=== PATIENT | female | born 1980 | race African-American/Black ===

== ENCOUNTER 2025-03-30 20:57 | Emergency (ER) | payer MEDICARE, SELFPAY ==
--- NOTE | ~2025-03-30 | CT_ITS ---
EXAM: CT abdomen pelvis wo con - 03/30/2025 22:46 CDT History: 45 years old Female with urinary sx, flank pain TECHNIQUE: Multidetector CT of the abdomen and pelvis without contrast. Coronal and sagittal reformats were also provided for review. Automatic exposure control was used for this study. COMPARISON: None Available. FINDINGS: Evaluation of bowel, vasculature, solid and hollow viscera is limited in the absence of oral and IV contrast. VISUALIZED CHEST: Visualized lungs are clear. ABDOMEN and PELVIS: LIVER: Within normal limits. GALLBLADDER: No calcified gallstones. BILE DUCTS: No dilatation. SPLEEN: Within normal limits. PANCREAS: Within normal limits. ADRENAL GLANDS: Within normal limits. KIDNEYS and URETERS: No hydronephrosis or hydroureter. No nephroureterolithiasis. URINARY BLADDER: Within normal limits. STOMACH and BOWEL: No abnormal bowel wall thickening. No obstruction. REPRODUCTIVE ORGANS: Within normal limits. MESENTERY/PERITONEAL CAVITY: No free fluid or pneumoperitoneum. LYMPH NODES: No abdominal or pelvic lymphadenopathy. ABDOMINAL WALL: Within normal limits. VASCULATURE: Within normal limits. MUSCULOSKELETAL: Within normal limits. IMPRESSION: 1. No evidence of acute pathology in the abdomen and pelvis. Reviewed, dictated and finalized at location N.
--- OUTSIDE RECORDS SUMMARY | 2025-03-30 21:00 | XMS_ITS | Clinical Summary ---
Author Organization [facility] on Address [address] [place] [address] Phone Care Team Providers Care Film Or Videotape Editor Name Role Phone Unavailable Primary Care Provider Unavailabl e Allergies Active Allergy Reactions Criticality Noted Date Comments Azithromycin Rash Low 07/02/2016 Meperidine Shortness of Breath/Wheezing,Rash High 07/02/2016 Propoxyphene N-Acetaminophen Rash Low 016 Sulfa (Sulfonamide Antibiotics) Rash Low 07/02/2016 Tramadol Diarrhea,Rash Low 07/02/2016 Medications CROMOLYN SODIUM (NASALCROM BOTH NOSTRIL) Administer in each nostril. Active BENZONATATE (TESSALON ORAL) Take by mouth. Active LORATADINE ORAL Take by mouth. Active QUEtiapine (SEROquel) 25 mg tablet TK 1 T PO HS 3 6 Active albuterol HFA 90 mcg inhalerIndication s:Asthmatic bronchitis, mild intermittent, uncomplicated Take 2 Puffs by inhalation every 6 hours as needed for Shortness of Breath or Wheezing. 6.7 Gram 6 Active fluticasone (FLONASE) 50 mcg/spray [place], SuspensionIndicat ions:Asthmatic bronchitis, mild intermittent, uncomplicated Administer 2 Sprays in each nostril daily. 16 Gram 6 Active Active Problems No known active problems Family History Medical History Relation Name Comments Hypertension Father Diabetes Mother Hypertension Mother Relation Name Status Comments Father Alive Mother Alive Social History Tobacco Use Types Packs/Day Years Used Date Smoking Tobacco: Never Alcohol Use Standard Drinks/Week Comments No 0 (1 standard drink = 0.6 oz pur e alcohol) Comments No Sex and Gender Information Value Date Recorded Sex Assigned at Not on file Legal Sex Female 5:02 PM CAREER TECHNICAL EDUCATION TEACHER Gender Identity Not on file Sexual Orientation Not on file Last Filed Vital Signs Vital Sign Reading Time Taken Comments Blood Pressure 116/87 07/02/2016 5:22 PM CAREER TECHNICAL EDUCATION TEACHER Pulse 80 07/02/2016 5:22 PM CAREER TECHNICAL EDUCATION TEACHER Temperature 36.9 C (98.4 F) 07/02/2016 5:22 PM CAREER TECHNICAL EDUCATION TEACHER Respiratory Rate 18 07/02/2016 5:22 PM CAREER TECHNICAL EDUCATION TEACHER Oxygen Saturation 100% 07/02/2016 5:22 PM CAREER TECHNICAL EDUCATION TEACHER Inhaled Oxygen Concentration - - Weight 72.1 kg (159 lb) 07/02/2016 5:22 PM CAREER TECHNICAL EDUCATION TEACHER Height 172.7 cm (5' 8) 07/02/2016 5:22 PM CAREER TECHNICAL EDUCATION TEACHER Body Mass Index 24.18 07/02/2016 5:22 PM CAREER TECHNICAL EDUCATION TEACHER Plan of Treatment Health Maintenance Due Date Last Done Comments DTAP/TDAP/TD VACCINES (1 - Tdap) 2001 HEPATITIS B VACCINES (1 of 3 - 19+ 3-dose series) 02/2001 HPV/Cotest (21-29) 2003 HPV VACCINES (1 - 3-dose SCDM series) 2009 CERVICAL CANCER SCREENING 01/03/2012 HPV/Cotest (30-65) 01/03/2012 PAP SMEAR 01/03/2012 BREAST CANCER SCREENING 2022 INFLUENZA VACCINE (#1) 2025 Insurance MEDICARE PART A HOSPITAL ONLY MEDICAID [place] MEDICARE PART A AND B
--- OUTSIDE RECORDS SUMMARY | 2025-03-30 21:00 | XMS_ITS | Clinical Summary ---
Author Organization [facility] Address [address] [facility] [place] [address] Care Team Providers Care Reweaver Name Role Phone Ron Champion MD Primary Care Provider [phone] Allergies Active Allergy Reactions Criticality Noted Date Comments Azithromycin Rash Medium 07/02/2016 Hydrocodone Rash Medium 12/20/2015 Hydromorphone Rash Medium 12/20/2015 Meperidine Itching,Rash,Shortne ss of breath High 12/20/2015 Oxycodone-Acetaminophen Rash Medium 12/20/2015 Penicillins Itching,Stomach upset Low 12/20/2015 Propoxyphene N-Acetaminophen Rash Medium 016 Sulfa (Sulfonamide Antibiotics) Tramadol Medications cetirizine (ZyrTEC) 10 mg tablet take 1 tablet by oral route every day 0 0 08/28/2015 Active naproxen (NAPROSYN,ALEVE ) 500 mg tablet take 1 tablet by oral route 2 times every day with food 0 0 08/28/2015 Active cyclobenzaprine (FLEXERIL) 10 mg tablet Take 1 tablet (10 mg total) by mouth every 8 (eight) hours as needed for muscle spasms 20 tablet 01/29/2024 Active magnesium gluconate 200 mg tabletIndicatio ns:hypomagnesem ia 1 tablet (200 mg total) Active multivitamin tabletIndicatio ns:Vitamin Deficiency Prevention Take 1 tablet by mouth Active turmeric root extract 500 mg capsule Take by mouth Active QUEtiapine (SEROquel) 25 mg tabletIndicatio ns:Bipolar affective disorder, currently depressed, mild (HCC) Take 1 tablet (25 mg total) by mouth nightly 05/13/2024 Active simvastatin (ZOCOR) 20 mg tablet Take 1 tablet (20 mg total) by mouth nightly 90 tablet 3 05/19/2024 05/19/20 25 Active albuterol HFA (ProAir HFA) 90 mcg/actuation inhaler Inhale 2 puffs every 4 (four) hours as needed for wheezing 1 each 11 07/29/2024 Active Active Problems Problem Noted Date Diagnosed Date Encounter to establish care 05/13/2024 Assessment & Plan (05/13/2024 3:39 PM CDT): In regard to health maintenance, Mammogram- ordered Influenza vaccine- declined Eat a healthy diet: focus on lean meats and proteins, more fruits, vegetables and whole grains and low in sugars and fats. Limit red meat and avoid processed meat. Maintain a healthy weight; avoid being overweight. Aim for a normal body mass index (BMI) of 18.5-24.9. Help learning to eat healthier, we can set up appointment with impregnator and drier helper/tape rules printing machine operator. Have an active lifestyle, strive for 30 minutes of moderate exercise 5 times a week and strength or resistance training at least twice a week. Use broad-spectrum (UVA+UVB) sunscreen with SPF 30 or greater, is water resistant, limit time spent in the sun (10 am-4pm), wear hat, wear UV protective clothing, wear sunglasses. Never use a tanning bed. Skin that was irradiated may be more sensitive over your lifetime. Do not smoke or chew tobacco; participate in a smoking cessation program. Limit alcohol intake, 1 drink per day for a woman and 2 drinks per day for a man. Bilateral sciatica 05/13/2024 Assessment & Plan (05/13/2024 3:39 PM CDT): Medrol dose pack for inflammation and advised to use Cyclobenzaprine PRN Mixed hyperlipidemia 05/13/2024 Assessment & Plan (05/13/2024 3:39 PM CDT): Lipid panel ordered will F/U with results. Thyroid nodule 05/13/2024 Assessment & Plan (05/13/2024 3:39 PM CDT): TSH and T4 ordered to evaluate thyroid function. Bipolar affective disorder, currently depressed, mild 08/28/2015 Overview (11/01/2016): Anxiety with depression Assessment & Plan (05/13/2024 3:38 PM CDT): Restarted on Seroquel daily. Migraine 08/28/2015 Overview (11/01/2016): Migraine Hypercholesterolemia 08/28/2015 Overview (11/01/2016): High cholesterol Immunizations Immunization Administration Dates Next Due Influenza, Quadrivalent, Spl it, Intramuscular 05/15/2016 Influenza, Unspecified 05/13/2024(Deferr ed: Patient Refused),05/13/2024(Deferred: Patient Refused),03/28/2023(Deferred: Patient Refused),03/28/2023(Deferred: Patient Refused) Surgical History Surgery Date Site/Laterality Comments HERNIA REPAIR 1982 HYSTERECTOMY 2015 Medical History Medical History Date Comments Gonorrhea Gonorrhea; Comme nts: MDD 08/28/2015 - Chlamydial infection Chlamydia; Comments: MDD 08/28/2015 - Hx Other Medical High cholestero l; Comments: MDD 08/28/2015 - Hx Other Medical migraines; Comm ents: MDD 08/28/2015 - Hx Other Medical anxiety; Commen ts: MDD 08/28/2015 - Depression Depression GERD (gastroesophageal reflux disease) 2021 Anxiety 1991 Family History Medical History Relation Name Comments Rashes / Skin problems Daughter Erika Stein Hypertension Father Haile Stein Depression Father's Brother Neto Aguirrekandice ramsey. Diabetes type II Maternal Grandfather Inga betes mellitus type 2; Hypertension Maternal Grandfather Hyperte nsion; Alzheimer's disease Maternal Grandmother Fannie figueroa Diabetes Maternal Grandmother Fannie Hernández Diabetes type II Maternal Grandmother Fannie Freitas iabetes mellitus type 2; Hypertension Maternal Grandmother Fannie Hernández Hyper tension; Anemia Mother Mary Stein Arthritis Mother Mary Stein Depression Mother Mary Stein Diabetes Mother Mary Stein Diabetes type II Mother Mary Stein Diabetes mellitus type 2; Hypertension Mother Mary Stein Hypertension; Diabetes Mother's Sister Sharon Hernández Arthritis Paternal Grandfather Neto Stein Diabetes Paternal Grandfather Neto Stein Diabetes type II Paternal Grandfather Neto Stein Di abetes mellitus type 2; Hearing loss Paternal Grandfather Neto Stein Hypertension Paternal Grandfather Neto Stein Hypert ension; Diabetes type II Paternal Grandmother Amber Stein Inga betes mellitus type 2; Hypertension Paternal Grandmother Amber Stein Hyperte nsion; Relation Name Status Comments Daughter Erika Stein Father Haile Stein Father's Brother Neto Stein jr. Maternal Grandfather Maternal Grandmother Fannie Hernández Mother Mary Stein Mother's Sister Sharon Hernández Paternal Grandfather Neto Stein Paternal Grandmother Amber Stein Social History Tobacco Use Types Packs/Day Years Used Date Smoking Tobacco: Never Cigarettes Smokeless Tobacco: Never Comments:Second-hand smoker only. Alcohol Use Standard Drinks/Week Comments No 0 (1 standard drink = 0.6 oz pur e alcohol) PHQ-2 Answer Date Recorded PHQ-2 Total Score (If total score is 3 or more points, staff should administer the PHQ-9) 2 05/13/2024 Personal Safety Answer Date Recorded Have you ever been in or are you currently in a harmful physical or emotional relationship or is someone making you feel afraid or unsafe? 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 Gender Identity Female 05/12/2024 2:26 PM CDT Sexual Orientation Straight 05/12/2024 2: 26 PM CDT Obstetrics History Last Filed Vital Signs Vital Sign Reading Time Taken Comments Blood Pressure 120/82 05/13/2024 2:17 PM CDT Pulse 75 05/13/2024 2:17 PM CDT Temperature 36.6 C (97.8 F) 01/29/2024 9:29 AM CDT Respiratory Rate 18 05/13/2024 2:17 PM CDT Oxygen Saturation 98% 05/13/2024 2:17 PM CDT Inhaled Oxygen Concentration - - Weight 77.9 kg (171 lb 12.8 oz) 05/13/2024 2:17 PM CDT Height 172.7 cm (5' 7.99) 05/13/2024 2:17 PM CD T Body Mass Index 26.13 05/13/2024 2:17 PM CDT Plan of Treatment Health Maintenance Due Date Last Done Comments Hepatitis C Screening 1982 DTaP/Tdap/Td Vaccine (1 - Tdap) 1993 Varicella Vaccines (1 of 2 - 13+ 2-dose series) 1995 Hepatitis B Screening 01/03/2000 HPV Vaccines (1 - 3-dose SCD M series) 2009 Breast Cancer Screening-Mammogram 03/18/2019 018 Covid-19 Vaccine (2 - 2023-2 5 season) 2024 05/04/2022 Influenza Vaccine (#1) 2025 05/15/2016 Depression Screening 05/13/2025 05/13/2024 Regular Well Visit/Exam 18-64 05/13/2025 05/13/2024 Pneumococcal vaccine <65 Aged Out No longer eligible based on patient's age to complete this topic Insurance HUMANA CHOICE MEDICARE PPO CIGNA HUMANA CHOICE MEDICARE PPO Care Teams Reweaver Relationship Specialty Start Date End Date Ron Champion [place] [address] PCP - General Family Medicine 05/13/24
--- OUTSIDE RECORDS SUMMARY | 2025-03-30 21:00 | XMS_ITS | Clinical Summary ---
Author Organization [facility] Address [address] [place] [address] Care Team Providers Care Keg Filler Name Role Phone Chapis Sawyer MD Primary Care Provider [phone] Allergies Active Allergy Reactions Criticality Noted Date Comments Azithromycin Rash Medium 07/02/2016 Elemental Sulfur Rash Low 12/20/2015 All sulfur drugs Hydrocodone Anaphylaxis High 08/10/2024 Meperidine Itching,Rash,Shortne ss of Breath High 12/20/2015 Hydrocodone-Acetaminop hen Rash Low 08/10/2024 Oxycodone-Acetaminophe n Rash Medium 12/20/2015 Penicillins GI Upset,Itching Low 12/20/2015 Sulfa Antibiotics Rash Low 07/02/2016 Sulfur Hives,Diarrhea,Rash, Itching,Swelling,Anx iety,GI Upset,Headache,Eyes Water & Itch Low 08/09/1997 Pt is unsure of all the pain medications she is allergic to Tramadol Anaphylaxis High 08/10/2024 Medications albuterol sulfate HFA 108 (90 Base) MCG/ACT inhaler 5 Active cetirizine (ZYRTEC) 10 MG chewable tablet Chew 1 tablet (10 mg total) by mouth daily. Active MAGNESIUM GLUCONATE OR Take 200 mg by mouth. Active multi vitamin/minerals (THERA-M ENHANCED) tablet Take 1 tablet by mouth daily. Active simvastatin (ZOCOR) 20 MG tabletIndications:M ixed hyperlipidemia Take 1 tablet (20 mg total) by mouth nightly at bedtime. 90 tablet 1 5 Active cyclobenzaprine (FLEXERIL) 10 MG tablet Take 1 tablet (10 mg total) by mouth every 8 (eight) hours as needed. 4 Active Docusate Sodium (DSS) 100 MG Cap Take 100 mg by mouth daily. Active Multiple Vitamin (MULTI-VITAMIN) tablet Take 1 tablet by mouth. Active Turmeric, Curcuma Longa, Powder Take by mouth Active celecoxib (CELEBREX) 200 MG capsuleIndications: Chronic bilateral low back pain with bilateral sciatica Take 1 capsule (200 mg total) by mouth 2 (two) times daily. 180 capsule 5 Active omeprazole (PRILOSEC) 40 MG capsuleIndications: Gastroesophageal reflux disease without esophagitis Take 1 capsule (40 mg total) by mouth daily. 90 capsule 5 Active QUEtiapine (SEROQUEL) 25 MG tabletIndications:B ipolar depression (CMS/HCC HHS/HCC),SARAH (generalized anxiety disorder) Take half a pill to one full pill nightly. 60 tablet 5 Active azelastine (ASTELIN) 0.1 % nasal sprayIndications:En vironmental and seasonal allergies 1 spray by Nasal route 2 (two) times daily. Use in each nostril as directed 30 mL 5 Active Active Problems Problem Noted Date Diagnosed Date Thyroid nodule 09/13/2024 Encounters Date Type Department Care Team Description 02/22/2025 Telephone [facility] Multispecialty Care - [address] [place] [address] Chapis Sawyer MD Medication from Last 3 Months Immunizations Immunization Administration Dates Next Due Influenza Adult (Generic) 05/15/2016 Family History Medical History Relation Comments Hypertension Father Breast Cancer Mother Responded to valentin rebecca and chemo. Cancer Mother Diabetes Mother Hypertension Mother breast cancer Mother Breast Cancer Paternal Uncle Great Uncle Alcohol Abuse Neg Hx Spouse Relation Status Comments Father Mother Paternal Uncle Alive Social History Tobacco Use Types Packs/Day Years Used Date Smoking Tobacco: Never Passive Smoke Exposure: Never Smokeless Tobacco: Never Tobacco Cessation:Counseling Given: Yes Comments:Counseled by Dr. Sawyer. Alcohol Use Standard Drinks/Week Comments Not Currently 1.7 (1 standard drink = 0.6 oz p ure alcohol) PHQ-2 Answer Date Recorded Patient Health Questionnaire-2 Score 2 11/22/2024 Comments No Sex and Gender Information Value Date Recorded Sex Assigned at Female 08/12/2024 12:06 PM NUTRITIONAL HEALTH COACH Legal Sex Female 7:54 PM NUTRITIONAL HEALTH COACH Gender Identity Female 08/18/2024 7:31 AM NUTRITIONAL HEALTH COACH Sexual Orientation Straight 08/18/2024 7: 31 AM NUTRITIONAL HEALTH COACH Last Filed Vital Signs Vital Sign Reading Time Taken Comments Blood Pressure 138/84 11/22/2024 2:11 PM CDT Pulse 77 11/22/2024 2:11 PM CDT Temperature 36.5 C (97.7 F) 11/22/2024 2:11 PM CDT Respiratory Rate 18 11/22/2024 2:11 PM CDT Oxygen Saturation 100% 11/22/2024 2:11 PM CDT Inhaled Oxygen Concentration - - Weight 83.4 kg (183 lb 12.8 oz) 11/22/2024 2:11 PM CDT Height 172.7 cm (5' 8) 11/22/2024 2:11 PM CDT Body Mass Index 27.95 11/22/2024 2:11 PM CDT Plan of Treatment Health Maintenance Due Date Last Done Comments DTaP, Tdap and Td Vaccines ( 1 - Tdap) 2001 Hepatitis B Vaccines (1 of 3 - 19+ 3-dose series) 2001 HPV Vaccines (1 - 3-dose SCD M series) 2009 COVID-19 Vaccine (2 - 2023-2 5 season) 2024 05/04/2022 Annual Physical 08/10/2025 08/10/2024 Mammogram Screening 10/11/2026 10/11/2024, 09/02/2024, 03/18/2018 Hepatitis C Completed 08/18/2024 PHQ-2 (Physician [place]) Completed 11/22/2024 Meningococcal B Vaccine Aged Out No l onger eligible based on patient's age to complete this topic Meningococcal Vaccine Aged Out No humberto tariq eligible based on patient's age to complete this topic Pneumococcal Vaccine: Pediatrics (0 to 5 Years) and At-Risk Patients (6 to 49 Years) Aged Out No longer eligible b ased on patient's age to complete this topic RSV Immunizations Under 20 Months Aged Out No longer eligible b ased on patient's age to complete this topic Procedures Procedure Name Priority Date/Time Associated Diagnosis Comments MG DIAG W CLAUDIA RT DIGI Routine 10/11/2024 2:05 PM CDT Abnormality of right breast on screening mammography HEPATITIS C ANTIBODY Routine 08/18/2024 10:22 AM NUTRITIONAL HEALTH COACH Annual physical exam Establishing care with new doctor, encounter for General medical exam Encounter for hepatitis C screening test for low risk patient Drug therapy from Last 3 Months or Most Recently Relevant to Health Maintenance Results * MG DIAG W CLAUDIA RT DIGI (10/11/2024 2:05 PM CDT) Anatomical Region Laterality Modality Breast Right Mammography 10/11/2024 2:33 PM CDT Impressions 10/11/2024 2:35 PM CDT =====IMPRESSION:===== Complicated cyst right breast Assessment: ACR BI-RADS 3 - PROBABLY BENIGN FINDING(S) - SHORT INTERVAL FOLLOW- UP SUGGESTED Recommendation: 1:Short interval follow-up in 6 months. Right COMMENTS: Please repeat diagnostic right breast mammogram and ultrasound in 6 months Examination: Breast ultrasound Findings: See combined report above. Comments: Ordered By: CHAPIS SAWYER Interpreted By: Ramón Allison MD, 10/11/2024 2:33 PM Narrative 10/11/2024 2:35 PM CDT [facility] [address] [place] [address] Examination: Right 3D diagnostic mammogram and right breast ultrasound. [id number] Reason For Exam: Right breast nodule Right breast mass on screening exam with further evaluation recommended Comparison: Screening mammogram 09/02/2024 Technique: Right 3D digital diagnostic mammography and right breast ultrasound was performed. This study was read with the assistance of a computer-aided detection system. Tissue density: The breasts are heterogeneously dense, which may obscure small masses. Findings: Small mass in the medial inferior right breast tissue at mid depth is evaluated on today's exam with spot compression views. The mass lesion persists with both CC and MLO spot compression tomographic images. Mass lesion has well-circumscribed borders and is fairly uniform in density. Subsequent ultrasound evaluation is performed. In the right breast 4:00 position 5 cm from the nipple is a 4 x 5 x 4 mm wider than tall hypoechoic correlate mass lesion. Internal echogenicity is mostly hypoechoic with subtle peripheral echoes. Posterior cowart well- defined. There is some posterior acoustic enhancement. No internal vascularity. This is a couple complicated cyst. us Chapis Sawyer MD MAMMO Final Result * HEPATITIS C ANTIBODY (08/18/2024 10:22 AM NUTRITIONAL HEALTH COACH) HEPATITIS C AB NON-REACTI VE NON-REACT MARIJA 08/19/2024 10:05 PM NUTRITIONAL HEALTH COACH [facility] Comment: ANTIBODIES TO HCV NOT DETECTED. DOES NOT EXCLUDE THE POSSIBILITY OF EXPOSURE TO HCV. 08/18/2024 10:2 2 AM NUTRITIONAL HEALTH COACH us Chapis Sawyer MD LABORATORY Final Result [facility] [address] [place] [id number], [id number] from Last 3 Months or Most Recently Relevant to Health Maintenance Insurance [employer] Care Teams Keg Filler Relationship Specialty Start Date End Date Chapis Sawyer MD [address] [address] PCP - General INTERNAL MEDICINE 07/13/24
--- OUTSIDE RECORDS SUMMARY | 2025-03-30 21:00 | XMS_ITS | Encounter Summary ---
Author Organization [facility] Address [address] [place] [address] Care Team Providers Care Quality Improvement Analyst Name Role Phone Chapis Sawyer MD Primary Care Provider [phone] Encounter Details Date Type Department Care Team (Late st Contact Info) Description 08/12/2024 MyChart Message Enc [facility] Multispecialty Care - [place] [address] [facility] [address] [place], [place] [id number] Chapis Sawyer MD [address] [facility] [address] [place], [place] [id number] Labs Social History Tobacco Use Types Packs/Day Years Used Date Smoking Tobacco: Never Passive Smoke Exposure: Never Smokeless Tobacco: Never Comments:Counseled by Dr. Emelia kelly. Alcohol Use Standard Drinks/Week Comments Not Currently 1.7 (1 standard drink = 0.6 oz p ure alcohol) PHQ-2 Answer Date Recorded Patient Health Questionnaire-2 Score 2 08/10/2024 Comments Unknown Sex and Gender Information Value Date Recorded Sex Assigned at Female 08/12/2024 12:06 PM DRYER OPERATOR Legal Sex Female 7:54 PM DRYER OPERATOR Gender Identity Female 08/18/2024 7:31 AM DRYER OPERATOR Sexual Orientation Straight 08/18/2024 7: 31 AM DRYER OPERATOR documented as of this encounter Plan of Treatment Not on file documented as of this encounter Visit Diagnoses Not on filedocumented in this encounter Additional Health Concerns Assessment Noted Time PHQ-9 Depression Total Score: 9 08/10/19 25 7:08 PM DRYER OPERATOR documented as of this encounter Care Teams Quality Improvement Analyst Relationship Specialty Start Date End Date Chapis Sawyer MD [address] [address] PCP - General INTERNAL MEDICINE 07/13/24 documented as of this encounter
--- OUTSIDE RECORDS SUMMARY | 2025-03-30 21:00 | XMS_ITS | Clinical Summary ---
Author Organization [facility] [employer] Address [address] [place] [address] Care Team Providers Care Airconditioning Plant Operator Name Role Phone Samuel Peters MD Primary Care Provider [phone] Source Comments [facility],non-owned Affiliates and Associated Physician Practices is amultiple site organization consisting of ambulatory clinics and hospital sitesin [place], [place], [place] and [place]. This disclosure is being madepursuant to the Care Everywhere program and may not contain all information available regarding this patient. Last updated 18.[facility] [employer] Allergies Active Allergy Reactions Criticality Noted Date Comments Amoxicillin Itching 12/20/2015 Meperidine Rash Low 12/20/2015 Hydrocodone Rash Low 12/20/2015 Hydromorphone Rash Low 12/20/2015 Penicillins Itching 12/20/2015 Oxycodone-Acetaminophen Rash Low 12/20/2015 Sulfur Rash Low 12/20/2015 All sulfur drugs Tramadol Rash Low 12/20/2015 Medications * Be aware that medications may not be up to date on this document. Alwaysverify current medications with the patient. docusate sodium (COLACE) 100 MG capsule Take 100 mg by mouth once daily Active QUEtiapine (SEROQUEL) 25 MG tablet TAKE 1 TABLET BY MOUTH AT BEDTIME 30 Tab 3 7 Active Additional Information Patient not taking.Reported on 07/24/2018 Fluticasone Propionate (FLONASE NA) Active albuterol HFA (PROVENTIL;VENT MILDRED;PROAIR) 108 (90 BASE) MCG/ACT inhaler Inhale 2 Puffs by mouth every 6 hours as needed Active cetirizine (ZYRTEC ALLERGY) 10 MG tablet Take 10 mg by mouth once daily Active Multiple Vitamin (MULTI VITAMIN MENS) TABS Take by mouth once daily Active CRANBERRY PO Take 3 tablets by mouth once daily as needed Active BIOTIN PO Take by mouth once daily Active Active Problems Problem Noted Date Diagnosed Date Screening-pulmonary TB 03/25/2016 Immunizations Immunization Administration Dates Next Due INFLUENZA VACCINE, QUADR. (A FLURIA, FLUZONE QUADRIVALENT; 6MO+) (IIV4) 05/15/2016 Family History Medical History Relation Name Comments Diabetes Father Heart Disease Father Diabetes Maternal Grandfather Diabetes Maternal Grandmother Cancer - Breast Mother approx. age5 5 Diabetes Mother Heart Disease Mother Diabetes Paternal Grandfather Diabetes Paternal Grandmother CAD (Coronary Artery Disease) Sister 1 Diabetes Sister 2 Relation Name Status Comments Father Maternal Grandfather Maternal Grandmother Mother Paternal Grandfather Paternal Grandmother Sister 1 Sister 2 Social History Tobacco Use Types Packs/Day Years Used Date Smoking Tobacco: Never Smokeless Tobacco: Never Alcohol Use Standard Drinks/Week Comments No 0 (1 standard drink = 0.6 oz pur e alcohol) Comments No Sex and Gender Information Value Date Recorded Sex Assigned at Not on file Legal Sex Female 7:10 AM CDT Gender Identity Not on file Sexual Orientation Not on file 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 - [employer] Not on file Not on file Not on file Last Filed Vital Signs Vital Sign Reading Time Taken Comments Blood Pressure 120/84 07/24/2018 3:17 PM NET DEVELOPMENT MANAGER Pulse 79 07/24/2018 3:17 PM NET DEVELOPMENT MANAGER Temperature 36.9 C (98.4 F) 07/24/2018 3:17 PM NET DEVELOPMENT MANAGER Respiratory Rate 16 07/24/2018 3:17 PM NET DEVELOPMENT MANAGER Oxygen Saturation 99% 07/24/2018 3:17 PM NET DEVELOPMENT MANAGER Inhaled Oxygen Concentration - - Weight 70.3 kg (155 lb) 07/24/2018 3:17 PM NET DEVELOPMENT MANAGER Height 172.7 cm (5' 8) 07/24/2018 3:17 PM NET DEVELOPMENT MANAGER Body Mass Index 23.57 07/24/2018 3:17 PM NET DEVELOPMENT MANAGER Plan of Treatment Health Maintenance Due Date Last Done Comments LIPID TESTING 1982 HIV SCREENING 1997 DTAP/TDAP/TD VACCINES (1 - Tdap) 2001 HEPATITIS B VACCINE (1 of 3 - 19+ 3-dose series) 2001 HPV VACCINE (1 - 3-dose SCDM series) 2009 COVID-19 VACCINE (1 - 2023-25 season) 2024 DEPRESSION SCREENING 07/28/2024 MEDICARE AWV CALENDAR YEAR 2024 INFLUENZA VACCINE (#1) 2025 05/15/2016 MAMMOGRAM 10/11/2026 10/11/2024, 02/0 12/2024, 09/02/2024, Additional history exists ZOSTER VACCINE (1 of 2) 01/03/2032 HEPATITIS C SCREENING Completed 08/18/2024 HIB VACCINE Aged Out No longer eligi ble based on patient's age to complete this topic MENINGOCOCCAL (Group B) VACCINE SHARED DECISION-MAKING Aged Out No longer eligible based on patient's age to complete this topic MENINGOCOCCAL GROUPS A/C/Y/W VACCINE Aged Out No longer eligible based on patient's age to complete this topic PNEUMOCOCCAL VACCINE Aged Out No long er eligible based on patient's age to complete this topic Procedures Procedure Name Priority Date/Time Associated Diagnosis Comments MAMMO BILAT SCREENING Routine 03/18/2018 11:57 AM CDT Visit for screening mammogram from Last 3 Months or Most Recently Relevant to Health Maintenance Results * MAMM SCREENING DIGITAL IMAGE BILAT [id number] (03/18/2018 11:57 AM CDT) Anatomical Region Laterality Modality Breast Bilateral Mammography 03/19/2018 9:53 AM CDT Narrative 03/19/2018 9:58 AM CDT Breast composition: Heterogeneously dense, which can obscure small masses. Body of report: Baseline mammogram These images were interpreted with the aid of CAD. 3-D tomosynthesis was utilized in the interpretation of this exam. There are no spiculated lesions or areas of architectural distortion. No suspicious calcifications are seen. There is a 1 cm oval well-circumscribed mass within the right breast approximately 5 cm from the nipple in the 9:00 position best seen on tomosynthesis slices 22 and 27 (CC and oblique respectively). BI-RADS assessment category: BI-RADS category 0, incomplete. Need additional imaging evaluation. Recommendation: Right breast ultrasound. Your patient completed a breast cancer risk assessment survey. Based on the information provided by your patient, it appears that she may be AT INCREASED (HIGH) RISK for the development of breast cancer. Additional quantitative risk model data + patient history details have been scanned as a document/letter in the [employer] EMR (media tab). The [place] [employer] recommends an enhanced clinical exam regimen and MRI screening in addition to yearly mammography for women who are confirmed at increased risk. Therefore, a more detailed risk assessment is recommended. [facility] recommends and offers one of the following options: -Consultation with board-certified genetic counselor -Consultation with board-certified surgeon who specializes in breast If you have questions regarding this information or our Cancer Genetics Risk Assessment Program or for assistance in scheduling a consultation, please do not hesitate to contact: [facility]: [phone] [facility]: [phone] [facility]: [phone] [facility]: [phone] Reading Radiologist: Shraddha Shah MD on 03/19/2018 at 9:58 AM Martir De La Paz SURGICAL TECHNOLOGIST-ASSEMBLER CAMPER MAMMO ORDERABLES Final Result from Last 3 Months or Most Recently Relevant to Health Maintenance Insurance [place] - [place] [facility] MANAGED MEDICARE ADV [facility] MEDICARE ADV HMO & PPO Care Teams Airconditioning Plant Operator Relationship Specialty Start Date End Date Samuel Peters MD PCP - General Internal Medicine 06/05/17
[2025-03-30 21:01] VITALS: BP 123/83; PULSE 99; RESP 18; TEMP 36.5; O2SAT 100
[2025-03-30 21:32] LABS: BEDSIDEPREGUCG Negative (Negative)
[2025-03-30 21:35] VITALS: BP 123/77; PULSE 86; RESP 17; O2SAT 100
[2025-03-30 21:43] LABS: Appearance Urine Clear (Clear)
--- OUTSIDE RECORDS SUMMARY | 2025-03-30 21:45 | XMS_ITS | Clinical Summary ---
Author Organization [facility] Address [address] [place] [address] Care Team Providers Care Differential Repairer Name Role Phone Ron Champion MD Primary Care Provider [phone] Allergies Active Allergy Reactions Criticality Noted Date [...] healthier, we can set up appointment with vapor coater/graphics coordinator. Have an active lifestyle, strive for 30 [...] on file Legal Sex Female 7:08 AM VACUUM FURNACE OPERATOR Gender Identity Female 05/12/2024 2:26 PM CDT [...] C[employer] CHOICE MEDICARE PPO Care Teams Differential Repairer Relationship Specialty Start Date End Date Ron [place] [address] PCP - General Family Medicine 05/13/24
--- OUTSIDE RECORDS SUMMARY | 2025-03-30 21:45 | XMS_ITS | Clinical Summary ---
Author Organization [facility] [employer] Address [address] [place] [address] Care Team Providers Care Biosolids Management Technician Name Role Phone Samuel Peters MD Primary Care Provider [phone] [facility],non-owned Affiliates and Associated Physician Practices is amultiple site organization consisting of ambulatory clinics and hospital sitesin [place], [place], [place] and [place]. This disclosure is being madepursuant to the Care Everywhere program and may not contain all information available regarding this patient. Last updated 18.[facility] [employer] Allergies Active Allergy Reactions Criticality Noted Date [...] Comments Blood Pressure 120/84 07/24/2018 3:17 PM CONSULTING HR PROFESSIONAL Pulse 79 07/24/2018 3:17 PM CONSULTING HR PROFESSIONAL Temperature 36.9 C (98.4 F) 07/24/2018 3:17 PM CONSULTING HR PROFESSIONAL Respiratory Rate 16 07/24/2018 3:17 PM CONSULTING HR PROFESSIONAL Oxygen Saturation 99% 07/24/2018 3:17 PM CONSULTING HR PROFESSIONAL Inhaled Oxygen Concentration - - Weight 70.3 kg (155 lb) 07/24/2018 3:17 PM CONSULTING HR PROFESSIONAL Height 172.7 cm (5' 8) 07/24/2018 3:17 PM CONSULTING HR PROFESSIONAL Body Mass Index 23.57 07/24/2018 3:17 PM CONSULTING HR PROFESSIONAL Plan of Treatment Health Maintenance Due Date [...] been scanned as a document/letter in the [employer] EMR (media tab). The [place] [employer] recommends an enhanced clinical exam regimen and MRI screening in addition to yearly mammography for women who are confirmed at increased risk. Therefore, a more detailed risk assessment is recommended. [facility] recommends and offers one of the following options: -Consultation with board-certified genetic counselor -Consultation with board-certified surgeon who specializes in breast If you have questions regarding this information or our Cancer Genetics Risk Assessment Program or for assistance in scheduling a consultation, please do not hesitate to contact: [facility]: [phone] [facility]: [phone] [facility]: [phone] [facility]: [phone] Reading Radiologist: Shraddha Shah MD on 03/19/2018 at 9:58 AM Martir De La Paz CASE MAKING MACHINE OPERATOR-HEALTHCARE RECEPTIONIST MAMMO ORDERABLES Final Result from Last 3 Months or Most Recently Relevant to Health Maintenance Insurance [place] [facility] MANAGED MEDICARE ADV [facility] MEDICARE ADV HMO & PPO Care Teams Biosolids Management Technician Relationship Specialty Start Date End Date Samuel Peters MD PCP - General Internal Medicine 06/05/17
--- OUTSIDE RECORDS SUMMARY | 2025-03-30 21:45 | XMS_ITS | Clinical Summary ---
Author Organization [facility] Address [address] [place] [address] Care Team Providers Care Cab Station Attendant Name Role Phone Chapis Sawyer MD Primary Care Provider [phone] Allergies Active Allergy Reactions Criticality Noted Date [...] Type Department Care Team Description 02/22/2025 Telephone [facility] - [address] [place] [address] Chapis Sawyer MD Medication from Last 3 [...] Sex Assigned at Female 08/12/2024 12:06 PM IP/MOSAIC TECHNICIAN Legal Sex Female 7:54 PM IP/MOSAIC TECHNICIAN Gender Identity Female 08/18/2024 7:31 AM IP/MOSAIC TECHNICIAN Sexual Orientation Straight 08/18/2024 7: 31 AM IP/MOSAIC TECHNICIAN Last Filed Vital Signs Vital Sign Reading [...] 03/18/2018 Hepatitis C Completed 08/18/2024 PHQ-2 (Physician [place]) Completed 11/22/2024 Meningococcal B Vaccine Aged Out [...] HEPATITIS C ANTIBODY Routine 08/18/2024 10:22 AM IP/MOSAIC TECHNICIAN Annual physical exam Establishing care with new [...] 2:33 PM Narrative 10/11/2024 2:35 PM CDT [facility] [address] [place] [address] Examination: Right 3D diagnostic mammogram and right breast ultrasound. [id number] Reason For Exam: Right breast nodule Right [...] * HEPATITIS C ANTIBODY (08/18/2024 10:22 AM IP/MOSAIC TECHNICIAN) HEPATITIS C AB NON-REACTI VE NON-REACT MARIJA 08/19/2024 10:05 PM IP/MOSAIC TECHNICIAN [facility] Comment: ANTIBODIES TO HCV NOT DETECTED. DOES NOT EXCLUDE THE POSSIBILITY OF EXPOSURE TO HCV. 08/18/2024 10:2 2 AM IP/MOSAIC TECHNICIAN us Chapis Sawyer MD LABORATORY Final Result [facility] [address] [place] [phone], [id number] from Last 3 Months or Most Recently Relevant to Health Maintenance Insurance [employer] Care Teams Cab Station Attendant Relationship Specialty Start Date End Date Chapis Sawyer MD [address] [address] PCP - General INTERNAL MEDICINE 07/13/24
--- OUTSIDE RECORDS SUMMARY | 2025-03-30 21:46 | XMS_ITS | Clinical Summary ---
Author Organization [facility] Address [address] [place] [address] Phone Care Team Providers Care Mental Tester Name Role Phone Unavailable Primary Care Provider [...] Gram 6 Active fluticasone (FLONASE) 50 mcg/spray [place], SuspensionIndicat ions:Asthmatic bronchitis, mild intermittent, uncomplicated Administer [...] on file Legal Sex Female 5:02 PM PILING CUTTER Gender Identity Not on file Sexual Orientation Not on file Last Filed Vital Signs Vital Sign Reading Time Taken Comments Blood Pressure 116/87 07/02/2016 5:22 PM PILING CUTTER Pulse 80 07/02/2016 5:22 PM PILING CUTTER Temperature 36.9 C (98.4 F) 07/02/2016 5:22 PM PILING CUTTER Respiratory Rate 18 07/02/2016 5:22 PM PILING CUTTER Oxygen Saturation 100% 07/02/2016 5:22 PM PILING CUTTER Inhaled Oxygen Concentration - - Weight 72.1 kg (159 lb) 07/02/2016 5:22 PM PILING CUTTER Height 172.7 cm (5' 8) 07/02/2016 5:22 PM PILING CUTTER Body Mass Index 24.18 07/02/2016 5:22 PM PILING CUTTER Plan of Treatment Health Maintenance Due Date Last Done Comments DTAP/TDAP/TD VACCINES (1 - Tdap) 2001 HEPATITIS B VACCINES (1 of 3 - 19+ 3-dose series) 02/2001 HPV/Cotest (21-29) 2003 HPV VACCINES (1 - 3-dose SCDM series) 2009 CERVICAL CANCER SCREENING 01/03/2012 HPV/Cotest (30-65) 01/03/2012 PAP SMEAR 01/03/2012 BREAST CANCER SCREENING 2022 INFLUENZA VACCINE (#1) 2025 Insurance MEDICARE PART A HOSPITAL ONLY MEDICAID [place] MED[place]ARE PART A AND B
[2025-03-30 21:49] LABS: Add Urine Microscopic? YES
--- NOTE | 2025-03-30 22:06 | ED_ITS ---
HPI - Female Genitourinary General Chief complaint: Urogenital-Female Stated complaint: UTI and back pain Time Seen by Provider: 03/30/25 21:23 History of Present Illness HPI Narrative: 45-year-old female with a reported history of uterine fibroids and hysterectomy presents emergency department with concerns for a UTI. Patient is reporting 4 days of dysuria, urinary frequency and urgency, suprapubic cramping and flank pain. She states she took azo 3 hours prior to arrival. She denies history of kidney stones. States she has had subjective fevers but has not taken her temperature. She denies vomiting but has had some nausea. She denies vaginal discharge, vaginal irritation, concern for STDs. States she has not been sexually active in 2024. Related Data Allergies Allergy/AdvReac Type Severity Reaction Status Date / Time meperidine (From Demerol) Allergy Rash Verified 03/30/25 21:26 Sulfa (Sulfonamide Allergy Swelling Verified 03/30/25 21:26 Antibiotics) tramadol Allergy Dyspnea / Verified 03/30/25 21:26 SOB amoxicillin AdvReac Rash Verified 03/30/25 21:26 hydrocodone AdvReac Hallucinati Verified 03/30/25 21:26 ng Review of Systems 2 Review of Systems: All systems reviewed & are unremarkable except as noted in HPI and below PMFSH Past Medical History Medical History No active medical problems Social History Social History Substance use: never Exam 2 Narrative: GENERAL: Well-appearing, well-nourished, and in no acute distress. HEAD: Normocephalic, atraumatic. EYES: EOMI. ENT: Nares clear, no rhinorrhea or epistaxis. Mucous membranes moist. NECK: Supple. CHEST: Clear to auscultation. No respiratory distress. HEART: Regular rate and rhythm. No murmur heard. Normal peripheral pulses. ABDOMEN: Normoactive bowel sounds. Minimal tenderness in the suprapubic region. No rebound or rigidity. No CVA tenderness EXTREMITIES: Normal range of motion. No edema. SKIN: Warm, dry, no rash. NEURO: No focal deficits. Alert and oriented x3 Course Vital Signs Vital signs: Vital Signs Temperature 97.7 F 03/30/25 21:01 Pulse Rate 99 03/30/25 21:01 Respiratory Rate 18 03/30/25 21:01 Blood Pressure 123/83 03/30/25 21:01 Pulse Oximetry 100 03/30/25 21:01 Oxygen Delivery Room Air 03/30/25 21:01 Temperature 97.7 F 03/30/25 21:01 Pulse Rate 86 03/30/25 21:35 Respiratory Rate 17 03/30/25 21:35 Blood Pressure 123/77 03/30/25 21:35 Pulse Oximetry 100 03/30/25 21:35 Oxygen Delivery Room Air 03/30/25 21:01 MDM - Female Genitourinary MDM Narrative Medical decision making narrative: 45-year-old female with history of hysterectomy presents emergency department for UTI symptoms for the past 4 days with flank pain. Triage vitals are stable. Patient is afebrile and nontoxic appearing. She is resting comfortably in exam bed. Exam is notable for the above. Lab work with mild leukocytosis of 10.1. Chemistries are largely unremarkable. UA shows 3-5 RBCs, no white blood cells or bacteria. is negative. Lipase is normal. CT abdomen pelvis shows no acute finding, no ureterolithiasis Patient updated on results. Uncertain what is causing her urinary symptoms. Discussed possibility of interstitial cystitis, bladder prolapse and other. She adamantly declines any vaginal discharge or discomfort in any concerns for STIs. Additionally will still send urine for culture given her symptoms. Will provide urology follow-up for further evaluation. Also advised to follow-up with her PCP. I discussed strict ED return precautions. She is agreeable to plan verbalized understanding. Discharged in stable condition. Lab Data 03/30/25 22:19 03/30/25 22:19 Labs: Lab Results 03/30/25 03/30/25 03/30/25 Range/Units 21:26 21:30 22:19 WBC 10.1 H (4.5-10.0) K/mm3 RBC 4.17 L (4.2-5.4) M/mm3 Hgb 12.9 (12.0-15.0) g/dL Hct 39.7 (37.0-47.0) % MCV 95.2 (80-100) fl MCH 30.9 (26-34) pg MCHC 32.5 (32-36) g/dl RDW 12.4 (11.5-14.5) % Plt Count 268 (150-375) k/mm3 MPV 10.5 H (7.4-10.4) fl Immature Gran % (Auto) 0.3 (0-0.5) % Neut % (Auto) 66.4 (45.5-73.1) % Lymph % (Auto) 24.8 (18.3-44.2) % Murray % (Auto) 7.5 (2.6-8.5) % Eos % (Auto) 0.5 (0-4.4) % Baso % (Auto) 0.5 (0.2-1.2) % Lymph # (Auto) 2.50 (0.9-3.2) K/mm3 Murray # (Auto) 0.8 H (0.1-0.6) K/mm3 Eos # (Auto) 0.1 (0-0.3) K/mm3 Baso # (Auto) 0.1 (0.0-0.1) K/mm3 Abs Immat Gran (auto) 0.03 (0.00-0.031) K/mm3 Absolute Neuts (auto) 6.7 (1.3-6.7) K/mm3 Absolute Nucleated RBC 0.000 (0.0-0.012) K/mm3 Nucleated RBC % 0.0 (0.0-0.2) % Sodium 139 (137-145) mmol/L Potassium 3.5 (3.4-5.0) mmol/L Chloride 107 (98-107) mmol/L Carbon Dioxide 23 (22-30) mmol/L Anion Gap 9 (4-12) mmol/L BUN 15 (7-17) mg/dL Creatinine 0.70 (0.7-1.0) mg/dL Estim Creat Clear Calc 90 ml/min Estimated GFR > 60 (59 - ) Glucose 68 (65-110) mg/dL Calcium 9.8 (8.4-10.2) mg/dL Total Bilirubin 0.3 (0.2-1.3) mg/dL AST 39 H (14-36) U/L ALT 30 (6-35) U/L Alkaline Phosphatase 70 (38-126) U/L Total Protein 8.2 (6.3-8.2) g/dL Albumin 4.6 (3.5-5.1) g/dL Lipase 213 (23-300) U/L Urine Color Dark orange H (Yellow) Urine Appearance Clear (Clear) Urine pH TNP Ur Specific [place] TNP Urine Protein TNP Urine Glucose (UA) TNP Urine Ketones TNP Ur Blood (Man) TNP Urine Nitrate TNP Urine Bilirubin TNP Urine Urobilinogen TNP Leukocyte Esterase Rfl TNP Urine RBC 3-5 H (0-2) /hpf Urine WBC 0-3 (0-3) /hpf Ur Squamous Epith Cells Rare (Few) /hpf Urine Bacteria Trace (None) /hpf POC Urine HCG, Qual Negative (Negative) Discharge Plan Discharge Clinical Impression: Dysuria Hematuria Qualifiers: Hematuria type: unspecified type Qualified Code(s): R31.9 - Hematuria, unspecified Patient Disposition: Home Condition: Stable Instructions: Antibiotic Form, Hematuria (ED), Dysuria (ED) Additional Instructions: You were evaluated in the emergency department for discomfort with urination and concerns for urinary tract infection. Your urine does not appear to be infected, however given her symptoms I did send it for urine culture. The CT shows no kidney stones. You did have a very small amount of blood in your urine. Please follow-up closely with urologist for further evaluation of your symptoms and blood in your urine. Follow up with her primary care provider. Return to the emergency department if you develop a fever, vomiting, changing or worsening pain, or other concerning symptoms. Patient Language: Amharic Prescriptions: No Action clindamycin HCl 300 mg capsule 300 mg PO Q6H 10 Days Qty: 40 0RF Follow-up/Referrals: Silverio,MD Chapis [Primary Care Provider, Unknown] Richard Fuentes MD [Physician, Urology]
[2025-03-30] MEDS: ONDANSETRON INJ 4 MG/2 ML VIAL IV PUSH (22:21)
[2025-03-30 22:24] LABS: Hematocrit 39.7 % (37.0-47.0); Hemoglobin 12.9 g/dL (12.0-15.0); Immature Granulocyte Percent A 0.3 % (0-0.5); Lymphocytes Absolute Auto 2.50 K/mm3 (0.9-3.2); Mean Corpuscular HGB Conc 32.5 g/dl (32-36); Mean Corpuscular Hemoglobin 30.9 pg (26-34); Mean Corpuscular Volume 95.2 fl (80-100); Nucleated Red Blood Cells Absolute Auto 0.000 K/mm3 (0.0-0.012); Nucleated Red Blood Cells Perc 0.0 % (0.0-0.2); Platelet Count Result 268 k/mm3 (150-375); Red Blood Count 4.17 M/mm3 (4.2-5.4); White Blood Count 10.1 K/mm3 (4.5-10.0)
[2025-03-30 22:37] LABS: Alanine Aminotransferase 30 U/L (6-35); Albumin Level 4.6 g/dL (3.5-5.1); Alkaline Phosphatase 70 U/L (38-126); Anion Gap 9 mmol/L (4-12); Aspartate Amino Transferase 39 U/L (14-36); Bilirubin,Total 0.3 mg/dL (0.2-1.3); Blood Urea Nitrogen 15 mg/dL (7-17); Calcium 9.8 mg/dL (8.4-10.2); Carbon Dioxide 23 mmol/L (22-30); Chloride 107 mmol/L (98-107); Estimated CRCL calculation 90 ml/min; Estimated Glomerular Filt Rate > 60; Glucose 68 mg/dL (65-110); Lipase 213 U/L (23-300); Potassium 3.5 mmol/L (3.4-5.0); Sodium 139 mmol/L (137-145); Total Protein 8.2 g/dL (6.3-8.2)
== END 2025-03-31 00:29 | disposition home or self-care (01) ==
PROVIDERS: Emergency Provider Physician Assistant; PCP Internal Medicine
DX: R30.0 Dysuria (principal); R31.9 Hematuria, unspecified; Z90.710 Acquired absence of both cervix and uterus
CPT/HCPCS: 36415; 74176; 80053; 81001; 81025; 83690; 85025; 87086; 96374; 99284; J2405